=== PATIENT | female | born 1995 | race Caucasian/White ===

== ENCOUNTER 2018-03-29 09:56 | Emergency (ER) | payer OTHER ==
[2018-03-29 10:37] VITALS: BP 128/77
[2018-03-29] MEDS ORDERED: Dexamethasone IV* 4 MG/ML 1 ML (4 MG) IV SLOW PU ONE (10:55)
--- NOTE | 2018-03-29 11:10 | UC ---
UC General HPI - HPI Summary HPI Summary: Patient is complaining of a sore throat, swollen tonsils and white on her tonsils. She states that she's had sore throat on and off for the past month. It seems worse at bedtime and then partially improves throughout the day. She denies any associated fever or chills or fatigue. She reports having been diagnosed with mono a few years back with a rapid test. She notes pain with swallowing but no difficulty with swallow or speech. - History of Current Complaint Stated Complaint: SORE THROAT CONGESTION Time Seen by Provider: 03/29/18 10:32 Hx Obtained From: Patient Hx Last Menstrual Period: IUD Pain Intensity: 5 - Allergy/Home Medications Allergies/Adverse Reactions: Allergies Allergy/AdvReac Type Severity Reaction Status Date / Time acetaminophen Allergy See Comment Verified 03/29/18 10:35 ibuprofen Allergy See Comment Verified 03/29/18 10:35 Home Medications: Home Medications NK [No Home Medications Reported] 03/29/18 [History Confirmed 03/29/18] PMH/Surg Hx/FS Hx/Imm Hx Previously Healthy: Yes - Surgical History Surgical History: None - Family History Known Family History: Positive: None - Social History Occupation: Student Lives: Dormitory/Roommates Alcohol Use: Occasionally Substance Use Type: None Smoking Status (MU): Never Smoked Tobacco - Immunization History Hx Tetanus, Diphtheria Vaccination: Yes Vaccination Up to Date: Yes Review of Systems Constitutional: Negative Skin: Negative Eyes: Negative ENT: Sore Throat Respiratory: Negative Cardiovascular: Negative Gastrointestinal: Negative Genitourinary: Negative Motor: Negative Neurovascular: Negative Musculoskeletal: Negative Neurological: Negative Psychological: Negative Is Patient Immunocompromised?: No All Other Systems Reviewed And Are Negative: Yes Physical Exam Triage Information Reviewed: Yes Appearance: Well-Appearing Vital Signs: Initial Vital Signs Temp 98 F 03/29/18 10:32 Pulse 71 03/29/18 10:32 Resp 16 03/29/18 10:32 BP 128/77 03/29/18 10:32 Pulse Ox 100 03/29/18 10:32 Vital Signs Reviewed: Yes Eyes: Positive: Conjunctiva Clear ENT: Positive: Pharyngeal erythema, TMs normal, Tonsillar swelling - MILD WITH WHITE EXUDATE, Uvula midline. Negative: Nasal congestion, Nasal drainage, Trismus, Muffled voice Neck: Positive: Supple, Tenderness @ - PERITONSILAR NODES, Enlarged Nodes @ - PERITONSILAR NODES Respiratory: Positive: Lungs clear, Normal breath sounds Cardiovascular: Positive: RRR, No Murmur Abdomen Description: Positive: Nontender, No Organomegaly, Soft. Negative: Distended, Guarding, Hepatomegaly, Splenomegaly Bowel Sounds: Positive: Present Musculoskeletal: Positive: ROM Intact Neurological: Positive: Alert Psychological: Positive: Age Appropriate Behavior Skin Exam: Normal Course/Dx - Course Course Of Treatment: The duration raises concern for EBV. Patient did report positive rapid monotest few years back; however, in general that is not a very good test and this could still be mono. No concern for peritonsillar abscess. Given the duration of her symptoms I am going to send throat culture as well as a CBC with differential and EBV IgG IgM testing. RAPID STREP=NEGATIVE. THROAT CULTURE, CBC WITH DIFF AND MANUAL ENTERED EBV IGG, IGM ALL PENDING. - Differential Dx - Multi-Symptom Provider Diagnoses: TONSILLITIS Discharge - Sign-Out/Discharge Documenting (check all that apply): Patient Departure All imaging exams completed and their final reports reviewed: No Studies - Discharge Plan Condition: Stable Disposition: HOME Patient Education Materials: Tonsillitis (ED) Referrals: [facility] [Outside] - 3 Days Additional Instructions: CALL IN 3 DAYS FOR THE RESULTS OF THE THROAT CULTURE AND BLOOD WORK. - Billing Disposition and Condition Condition: STABLE Disposition: Home
[2018-03-29 18:49] LABS: ABS Basophils 0 10^3/ul (0-0.2); ABS Eosinophils 0.1 10^3/ul (0-0.6); ABS Lymphocytes 1.5 10^3/ul (1.0-4.8); ABS Monocytes 0.6 10^3/ul (0-0.8); ABS Neutrophils 2.9 10^3/ul (1.5-7.7); ABS Nucleated RBC 0 10^3/ul; Hematocrit 42 % (35-47); Lymphocyte % 30.1 % (25-47); Mean Corpuscular HGB Conc 34 g/dl (31-36); Mean Corpuscular Hemoglobin 29 pg (27-31); Mean Corpuscular Volume 87 fL (80-97); Mean Platelet Volume 8.9 um3 (7.4-10.4); Nucleated Red Blood Cells % 0.1; Platelet Count 268 10^3/ul (150-450); Red Blood Count 4.77 10^6/ul (4.00-5.40); Red Cell Distribution Width 13 % (10.5-15); White Blood Count 5.1 10^3/ul (3.5-10.8)
== END 2018-03-29 11:47 | disposition home or self-care (01) ==
LOC: UCCORT 09:56
DX: J03.90 Acute tonsillitis, unspecified (principal); Z88.6 Allergy status to analgesic agent
CPT/HCPCS: 36415; 85025; 86308; 86664; 86665; 87070; 87077; 87651; 99202; G0463; J1100

== ENCOUNTER 2018-08-20 11:03 | Emergency (ER) | payer OTHER ==
[2018-08-20 11:35] VITALS: BP 156/62
--- NOTE | 2018-09-12 13:45 | UC ---
Throat Pain/Nasal Pardeep HPI - HPI Summary HPI Summary: Patient states she has had nasal congestion over the past 2 days however she has had a scratchy throat for approximately one month. - History of Current Complaint Chief Complaint: UCGeneralIllness Stated Complaint: ST/BODY ACHES/MCCRACKEN Time Seen by Provider: 08/20/18 12:02 Hx Obtained From: Patient Hx Last Menstrual Period: Mirena IUD ?: No Onset/Duration: Gradual Onset Severity: Mild Pain Intensity: 7 Pain Scale Used: 0-10 Numeric Cough: None Associated Signs & Symptoms: Positive: Nasal Discharge - Allergies/Home Medications Allergies/Adverse Reactions: Allergies Allergy/AdvReac Type Severity Reaction Status Date / Time acetaminophen Allergy See Comment Verified 08/20/18 11:32 ibuprofen Allergy See Comment Verified 08/20/18 11:32 Home Medications: Home Medications Guaifenesin/Pseudoephedrne HCl [Mucinex D] 1 tab PO Q12HR PRN 08/20/18 [History Confirmed 08/20/18] Levonorgestrel (Iud) [Mirena IUD] 20 mcg IU ONCE 08/20/18 [History Confirmed 08/09] Naproxen Sodium [Aleve] 440 mg PO Q12H PRN 08/20/18 [History Confirmed 08/20/18] PMH/Surg Hx/FS Hx/Imm Hx Previously Healthy: Yes - Surgical History Surgical History: None - Family History Known Family History: Positive: None - Social History Alcohol Use: Occasionally Substance Use Type: None Smoking Status (MU): Never Smoked Tobacco - Immunization History Hx Tetanus, Diphtheria Vaccination: Yes Vaccination Up to Date: Yes Review of Systems All Other Systems Reviewed And Are Negative: Yes Constitutional: Positive: Negative Skin: Positive: Negative Eyes: Positive: Negative ENT: Positive: Sore Throat - [place] throat as being scratchy not necessarily sore. Clear nasal coryza., Nasal Discharge Respiratory: Positive: Negative Cardiovascular: Positive: Negative Gastrointestinal: Positive: Negative Genitourinary: Positive: Negative Motor: Positive: Negative Neurovascular: Positive: Negative Musculoskeletal: Positive: Negative Neurological: Positive: Negative Psychological: Positive: Negative Is Patient Immunocompromised?: No Physical Exam Triage Information Reviewed: Yes Appearance: Well-Appearing, No Pain Distress, Well-Nourished Vital Signs: Initial Vital Signs Temp 98.8 F 08/20/18 11:30 Pulse 105 08/20/18 11:30 Resp 16 08/20/18 11:30 BP 156/62 08/20/18 11:30 Pulse Ox 99 08/20/18 11:30 Vital Signs Reviewed: Yes Eye Exam: Normal ENT Exam: Normal Neck exam: Normal Neck: Positive: Supple, Nontender, No Lymphadenopathy Respiratory Exam: Normal Cardiovascular Exam: Normal Abdominal Exam: Normal Bowel Sounds: Positive: Present Musculoskeletal Exam: Normal Neurological Exam: Normal Psychological Exam: Normal Skin Exam: Normal Throat Pain/Nasal Course/Dx - Course Course Of Treatment: She has been comfortable here. Rapid strep test was negative. She may do warm saltwater gargles and recheck as needed for any worsening symptoms with a primary care provider. - Differential Dx/Diagnosis Differential Diagnosis/HQI/PQRI: Pharyngitis Provider Diagnosis: Pharyngitis Discharge - Sign-Out/Discharge Documenting (check all that apply): Patient Departure All imaging exams completed and their final reports reviewed: No Studies - Discharge Plan Condition: Fair Disposition: HOME Prescriptions: Amoxicillin PO (*) [Amoxicillin 875 MG (*)] 875 mg PO BID 10 Days #20 tab Patient Education Materials: Ear Infection (ED), Tonsillitis (ED) Referrals: No Primary Care Phys,NOPCP [Primary Care Provider] - ZUHAIR REYES [, APPLICATION, OTHER] - Additional Instructions: Rest, increase fluids, change your toothbrush in 24 hours. Go to the [facility] if no improvement by Wednesday. Warm salt water gargles. - Billing Disposition and Condition Condition: FAIR Disposition: Home
== END 2018-08-20 12:36 | disposition home or self-care (01) ==
LOC: UCCORT 11:03
DX: J02.9 Acute pharyngitis, unspecified (principal); R09.81 Nasal congestion; Z88.6 Allergy status to analgesic agent
CPT/HCPCS: 87651; 99212; G0463